=== PATIENT | male | born 1960 | race Caucasian/White ===

== ENCOUNTER 2019-01-08 11:27 | Inpatient (IN) | payer MEDICARE ==
[2019-01-08] VITALS (11 sets, daily range): BP systolic 80–149; BP diastolic 49–105
[~2019-01-08] VITALS: Ht 167 cm; Wt 69.7 kg
--- NOTE | 2019-01-08 12:12 | ED Respiratory ---
General Chief Complaint: Respiratory Problems Stated Complaint: AUDITORY/VISUAL HALLUCINATIONS; SOB Nursing Triage Note: PT HAS COPD/EMPHYSEMA AND REPORTS INCREASED SHORTNESS OF BREATH THE PAST TWO WEEKS WIUTH WORSENING THE PAST 2 DAYS. FAMILY REPORTS SOME HALLUCINATIONS PAST 2 DAYS. History of Present Illness Date Seen by Provider: Jan 08, 2019 Time Seen by Provider: 11:50 Initial Comments The patient is a 58-year-old male with a history of hypertension, hyperlipidemia, coronary artery disease s/p stenting/GA and severe COPD with chronic respiratory failure on 3 L per nasal cannula at all times. The patient presents with concern for gradually increasing shortness of breath and dyspnea with minimal exertion over the past 2 weeks. Over the past couple of days the patient has been unable to ambulate at all secondary to severe dyspnea. Patient reports associated dry nonproductive cough. Patient is unable to speak in full sentences and has to struggle for breath in between words. Accessory muscle recruitment is noted on initial evaluation and the patient is tripoding to some degree. Family state that in addition to the shortness of breath that over the last couple of days the patient has been having some hallucinations. Reportedly he has been a little "out of it" and has been hearing the television tuned to a football game when the television is off. No associated fevers, nausea or vomiting, chest pain, flank pain, back pain, dysuria or hematuria, changes in bowel habits. Patient reports compliance with his home breathing and other medications. Vital signs generally appropriate aside from oxygen saturation of a bout 90% on 3 L per nasal cannula. Patient is alert and oriented and appropriately interactive, though as noted is unable to speak in full sentences due to severe dyspnea. Allergies and Home Medications Allergies Coded Allergies: No Known Drug Allergies (Unverified , 01/08/19) Patient Home Medication List Home Medication List Reviewed: Yes Review of Systems Review of Systems Constitutional: see HPI All Other Systems Reviewed Negative Unless Noted: Yes (Negative excepted noted.) Past Fcjevbp-Opihsc-Zvpcxa Hx Past Med/Social Hx: Reviewed Nursing Past Med/Soc Hx Patient Social History Alcohol Use: Denies Use Recreational Drug Use: No Smoking Status: Current Everyday Smoker Type Used: Cigarettes Former Smoker, Quit: Dec 29, 2018 2nd Hand Smoke Exposure: Yes Recent Foreign Travel: No Contact w/Someone Who Travel: No Recent Infectious Disease Expo: No Recent Hopitalizations: No Physical Abuse: No Sexual Abuse: No Mistreated: No Fear: No Seasonal Allergies Seasonal Allergies: No Family Medical History Reviewed Nursing Family Hx Physical Exam Vital Signs - First Documented 01/08/19 11:30 Temp 37.3 Pulse 118 Resp 18 B/P (MAP) 111/99 (103) O2 Delivery Room Air Capillary Refill : Less Than 3 Seconds Height: '" Weight: lbs. oz. kg; 20.00 BMI Method: General Appearance: mild distress This is an older male appearing rather ill and in mild distress. Patient is leaning forward to breathe and tripoding to degree and speaking in short sentences with pauses for breath and accessory muscle improvement is appreciated. Patient is tachypneic. Head is normocephalic and atraumatic. Neck is supple and nontender. Oropharynx is moist. Lungs with significantly diminished breath sounds in all trejo and with other findings as noted above. There is a normal S1 and S2 without rubs or gallops and capillary refill is appropriate, less than 2 seconds globally. Abdomen is soft, nontender and nondistended. Skin is warm and dry without dependent peripheral edema noted. There is no cyanosis but there is clubbing of the fingernails. Psychiatrically, the patient demonstrates appropriate mood and affect and is alert. Neurologically, the patient is oriented in all spheres, moves all extremities equally and no lateralizing deficits are seen. Focused Exam Lactate Level 01/08/19 12:30: Lactic Acid Level 0.84 Lactic Acid Level Laboratory Tests Test 01/08/19 12:30 Lactic Acid Level 0.84 MMOL/L (0.50-2.00) Progress/Results/Core Measures Suspected Sepsis Recent Fever Within 48 Hours: No Infection Criteria Present: None New/Unexplained Altered Menta: No Sepsis Screen: No Definite Risk SIRS Temperature: Pulse: 118 Respiratory Rate: 18 Laboratory Tests 01/08/19 12:30: White Blood Count 9.7 Blood Pressure 111 /99 Mean: 103 01/08/19 12:30: Lactic Acid Level 0.84 Laboratory Tests 01/08/19 12:30: Creatinine 0.63, INR Comment 1.0, Platelet Count 232, Total Bilirubin 0.3 Results/Orders Lab Results Laboratory Tests Test 01/08/19 12:30 01/08/19 12:45 Range/Units White Blood Count 9.7 4.3-11.0 10^3/uL Red Blood Count 3.80 L 4.35-5.85 10^6/uL Hemoglobin 12.0 L 13.3-17.7 G/DL Hematocrit 41 40-54 % Mean Corpuscular Volume 107 H 80-99 FL Mean Corpuscular Hemoglobin 32 25-34 PG Mean Corpuscular Hemoglobin Concent 30 L 32-36 G/DL Red Cell Distribution Width 12.2 10.0-14.5 % Platelet Count 232 130-400 10^3/uL Mean Platelet Volume 11.1 H 7.4-10.4 FL Neutrophils (%) (Auto) 81 H 42-75 % Lymphocytes (%) (Auto) 6 L 12-44 % Monocytes (%) (Auto) 12 0-12 % Eosinophils (%) (Auto) 0 0-10 % Basophils (%) (Auto) 0 0-10 % Neutrophils # (Auto) 7.9 H 1.8-7.8 X 10^3 Lymphocytes # (Auto) 0.6 L 1.0-4.0 X 10^3 Monocytes # (Auto) 1.2 H 0.0-1.0 X 10^3 Eosinophils # (Auto) 0.0 0.0-0.3 10^3/uL Basophils # (Auto) 0.0 0.0-0.1 10^3/uL Neutrophils % (Manual) 52 % Lymphocytes % (Manual) 6 % Monocytes % (Manual) 12 % Eosinophils % (Manual) 0 % Basophils % (Manual) 0 % Band Neutrophils 30 % Blood Morphology Comment NORMAL Prothrombin Time 13.3 12.2-14.7 SEC INR Comment 1.0 0.8-1.4 Activated Partial Thromboplast Time 28 24-35 SEC Sodium Level 142 135-145 MMOL/L Potassium Level 4.6 3.6-5.0 MMOL/L Chloride Level 85 L 98-107 MMOL/L Carbon Dioxide Level 49 *H 21-32 MMOL/L Anion Gap 8 5-14 MMOL/L Blood Urea Nitrogen 13 7-18 MG/DL Creatinine 0.63 0.60-1.30 MG/DL Estimat Glomerular Filtration Rate > 60 BUN/Creatinine Ratio 21 Glucose Level 164 H 70-105 MG/DL Lactic Acid Level 0.84 0.50-2.00 MMOL/L Calcium Level 9.6 8.5-10.1 MG/DL Corrected Calcium 9.6 8.5-10.1 MG/DL Total Bilirubin 0.3 0.1-1.0 MG/DL Aspartate Amino Transf (AST/SGOT) 15 5-34 U/L Alanine Aminotransferase (ALT/SGPT) 9 0-55 U/L Alkaline Phosphatase 98 40-136 U/L Troponin I < 0.30 <0.30 NG/ML Pro-B-Type Natriuretic Peptide 384.3 H <75.0 PG/ML Total Protein 8.1 6.4-8.2 GM/DL Albumin 4.0 3.2-4.5 GM/DL Salicylates Level < 5.0 L 5.0-20.0 MG/DL Acetaminophen Level < 10 L 10-30 UG/ML Serum Alcohol < 10 <10 MG/DL Blood Gas Puncture Site LT RAD Blood Gas Patient Temperature 35.6 Arterial Blood pH 7.27 *L 7.37-7.43 Arterial Blood Partial Pressure CO2 > 115 *H 35-45 MMHG Arterial Blood Partial Pressure O2 51 L 79-93 MMHG Arterial Blood HCO3 23-27 MMOL/L Arterial Blood Total CO2 21.0-31.0 MMOL/L Arterial Blood Oxygen Saturation 94-100 % Arterial Blood Base Excess -2.5-2.5 MMOL/L Morteza Test POS Blood Gas Ventilator Setting NO Blood Gas Inspired Oxygen 3L My Orders Orders - WILFREDO OSBORN MD Cbc With Automated Diff (01/08/19 12:13) Comprehensive Metabolic Panel (01/08/19 12:13) Troponin I (01/08/19 12:13) Ekg Tracing (01/08/19 12:13) Ua Culture If Indicated (01/08/19 12:13) Probnp Fs (01/08/19 12:13) Protime With Inr (01/08/19 12:13) Partial Thromboplastin Time (01/08/19 12:13) Ct Head Wo (01/08/19 12:13) Arterial Blood Gas (01/08/19 12:13) Lactic Acid Analyzer (01/08/19 12:13) Blood Culture (01/08/19 12:13) Acetaminophen (01/08/19 12:13) Salicylate (01/08/19 12:13) Alcohol (01/08/19 12:13) Drug Screen Stat (Urine) (01/08/19 12:13) Ceftriaxone For Iv Use (Rocephin For I (01/08/19 12:45) Albuterol/Ipra Inhalation Soln (Duoneb I (01/08/19 12:45) Svn Small Volume Nebulizer (01/08/19 12:31) Albuterol Pre-Mix Nebs (Rt) (Proventil (01/08/19 12:45) Svn Small Volume Nebulizer (01/08/19 12:31) Methylprednisolone Sod Succ (Solu-Medrol (01/08/19 12:45) Manual Differential (01/08/19 12:30) Chest 1 View Ap/Pa Only (01/08/19 12:13) Chest 1 View Ap/Pa Only (01/08/19 14:54) Propofol Drip (Icu) (Diprivan Drip (Icu) (01/08/19 14:57) Ed Iv/Invasive Line Start (01/08/19 15:07) Ns Iv 1000 Ml (Sodium Chloride 0.9%) (01/08/19 15:07) Propofol Injection (Diprivan Injection) (01/08/19 15:15) Fentanyl Drip 250 Ml (01/08/19 15:15) Medications Given in ED Current Medications Medications Dose Ordered Sig/Janina Route Start Time Stop Time Status Last Admin Dose Admin Albuterol Sulfate 2.5 mg ONCE ONCE INH 01/08/19 12:45 01/08/19 12:46 DC 01/08/19 13:05 2.5 MG Albuterol/ Ipratropium 3 ml ONCE ONCE INH 01/08/19 12:45 01/08/19 12:46 DC 01/08/19 13:05 3 ML Ceftriaxone Sodium 1000 mg/ Sterile Water 10 ml @ 200 mls/hr ONCE ONCE IV 01/08/19 12:45 01/08/19 12:47 DC 01/08/19 13:32 200 MLS/HR Methylprednisolone Sodium Succinate 125 mg ONCE ONCE IVP 01/08/19 12:45 01/08/19 12:46 DC 01/08/19 13:31 125 MG Vital Signs/I&O 01/08/19 11:30 Temp 37.3 Pulse 118 Resp 18 B/P (MAP) 111/99 (103) O2 Delivery Room Air Capillary Refill : Less Than 3 Seconds Blood Pressure Mean: 103 Progress Note : Time: 13:30 Progress Note Ill-appearing 58-year-old male who presents in apparent acute on chronic respiratory failure with poor air movement, accessory muscle use, tripoding and inability to speak in full sentences. Symptoms have been progressive over 2 weeks. Suspect his reported alteration in mental status over the last few days is related to hypercarbia but we'll explore other possibilities as well with advanced imaging and labwork. We'll place the patient on BiPAP, give bronchodilators, steroids and abx dose and plan ICU admission. Update 1500: patient unfortunately appeared to tire significantly while on BiPAP and became obtunded. Therefore, patient was endotracheally intubated due to need for airway protection and acute hypercarbic hypoxemic respiratory failure. RSI was performed with etomidate and succinylcholine and tube was passed through the cords on the first attempt by myself without any complications. Patient tolerated the procedure very well and postprocedure vital signs are appropriate. Case is discussed with Dr. Simeon of critical care/pulmonary medicine who will evaluate the patient as soon as he gets to [place]. Case is also discussed with Dr. Kent who graciously accept the patient for ICU admission. We will proceed with transfer at this time. ECG Comment Sinus tachycardia, rate 109, no acute ST elevation or depression, ME 102, QRS 93, QTC 438, EP interpretation. Diagnostic Imaging Diagonstic Imaging: Xray, CT Comments XR chest and CT head: advanced bullous emphysema on CXR; head CT nonacute, radiology read Critical Care Note Critical Care Start Time: 13:30 Stop Time: 15:30 Total Time (minutes) 120 Departure Impression Primary Impression: Acute and chronic respiratory failure with hypercapnia Additional Impressions: Acute and chronic respiratory failure with hypoxia COPD exacerbation Disposition: ADMITTED INPATIENT Condition: Critical Transfer Method of Transfer: EMS Departure-Patient Inst. Referrals: CRISTI TO MD (PCP/Family) Primary Care Physician WILFREDO OSBORN MD Jan 08, 2019 12:12
[2019-01-08] MEDS ORDERED: RT-ALBUTEROL/IPRATROPIUM 3 ML (DUONEB) VIAL INH ONE (12:45)
[2019-01-08] MEDS ORDERED: cefTRIAXone FOR IV USE 1,000 MG in WATER (STERILE) FOR INJECTION 10 ML IV ONE (12:45)
[2019-01-08] MEDS ORDERED: RT-ALBUTEROL SULF 2.5 MG/3 ML PRE-MIX VIAL INH ONE (12:45)
[2019-01-08] MEDS ORDERED: methylPREDNISolone 125 MG (Solu-MEDROL) VIAL IVP ONE (12:45)
[2019-01-08 12:48] LABS: HEMATOCRIT 41 % (40-54); MEAN CORPUSCULAR HEMOGLOBIN 32 PG (25-34); MEAN CORPUSCULAR HGB CONC 30 G/DL (32-36); MEAN CORPUSCULAR VOLUME 107 FL (80-99); MEAN PLATELET VOLUME 11.1 FL (7.4-10.4); PLATELET COUNT 232 10^3/uL (130-400); RED CELL DISTRIBUTION WIDTH 12.2 % (10.0-14.5); WHITE BLOOD COUNT 9.7 10^3/uL (4.3-11.0)
[2019-01-08 12:49] LABS: BASOPHILS % (AUTO) 0 % (0-10); EOSINOPHILS % (AUTO) 0 % (0-10); LYMPHOCYTES # (AUTO) 0.6 X 10^3 (1.0-4.0); LYMPHOCYTES % (AUTO) 6 % (12-44); MONOCYTES # (AUTO) 1.2 X 10^3 (0.0-1.0); MONOCYTES % (AUTO) 12 % (0-12); NEUTROPHILS # (AUTO) 7.9 X 10^3 (1.8-7.8); NEUTROPHILS % (AUTO) 81 % (42-75)
[2019-01-08 12:55] LABS: ABG PH 7.27 (7.37-7.43)
[2019-01-08 12:56] LABS: ABG PCO2 > 115 MMHG (35-45); ABG PO2 51 MMHG (79-93); ALLENS TEST POS; INSPIRED O2 3L; PATIENT TEMP 35.6; VENTILATOR NO
[2019-01-08 12:57] LABS: PROTHROMBIN TIME PATIENT 13.3 SEC (12.2-14.7)
[2019-01-08 13:12] LABS: CHLORIDE 85 MMOL/L (98-107); POTASSIUM 4.6 MMOL/L (3.6-5.0); SODIUM 142 MMOL/L (135-145)
[2019-01-08 13:13] LABS: ALANINE AMINOTRANSFERASE 9 U/L (0-55); ALKALINE PHOSPHATASE 98 U/L (40-136); BILIRUBIN,TOTAL 0.3 MG/DL (0.1-1.0); BUN/CREATININE RATIO 21; CALCIUM 9.6 MG/DL (8.5-10.1); CARBON DIOXIDE 49 MMOL/L (21-32); CREATININE SERUM 0.63 MG/DL (0.60-1.30); GFR ESTIMATED > 60; GLUCOSE 164 MG/DL (70-105)
[2019-01-08 13:14] LABS: ACETAMINOPHEN < 10 UG/ML (10-30); SALICYLATE < 5.0 MG/DL (5.0-20.0); TOTAL PROTEIN 8.1 GM/DL (6.4-8.2)
--- NOTE | 2019-01-08 13:36 | Diagnostic Imaging Report ---
INDICATION: Shortness of breath. Frontal chest obtained at 1:07 p.m. FINDINGS: There is cardiomegaly. There is marked biapical bullous disease with a large bleb in the right apex medially. There is no pleural fluid or overt pneumothorax. There is some perihilar infiltrate on the right side, which may represent superimposed pneumonia. IMPRESSION: Severe COPD changes with prominent biapical bullous disease, right worse than left. There is some right perihilar alveolar infiltrate suspicious for superimposed pneumonia. Followup is recommended. Dictated by: Dictated on workstation # [id number]
--- NOTE | 2019-01-08 13:50 | Diagnostic Imaging Report ---
PROCEDURE: CT head without contrast. TECHNIQUE: Multiple contiguous axial images were obtained through the brain without the use of intravenous contrast. Auto Exposure Controls were utilized during the CT exam to meet ALARA standards for radiation dose reduction. INDICATION: Hallucinations. FINDINGS: Study is somewhat compromised by patient motion. Ventricles and sulci are within normal limits. No sulcal effacement or midline shift is detected. No acute intra-axial or extra-axial hemorrhage is detected. Cisterns are patent. Visualized paranasal sinuses are clear. IMPRESSION: No acute intracranial process is detected. Dictated by: Dictated on workstation # [id number]
[2019-01-08 14:32] LABS: BAND NEUTROPHILS 30 %; BASOPHILS % (MANUAL) 0 %; EOSINOPHILS % (MANUAL) 0 %; LYMPHOCYTES % (MANUAL) 6 %; MONOCYTES % (MANUAL) 12 %; NEUTROPHILS % (MANUAL) 52 %; RBC MORPH NORMAL
--- NOTE | 2019-01-08 14:45 | NUR ---
PT WAS MOVED TO ER 3 TO PREPARE FOR INTUBATION. 1452 100 MG OF SUCCINYCHOLINE GIVEN IV IN THE RIGHT WRIST. 1452 130 MG OF ETOMIDATE GIVEN IV IN THE RIGHT WRIST.
[2019-01-08] MEDS ORDERED: PROPOFOL DRIP (ICU) 100 ML IV ONE (14:57)
[2019-01-08] MEDS ORDERED: NS IV 1000 ML 1,000 ML IV SCH (15:07)
[2019-01-08] MEDS ORDERED: fentaNYL INJECTION 100 MCG/2 ML AMP ONE (15:10)
--- NOTE | 2019-01-08 15:14 | NUR ---
1507 [facility] called at this time to see if they can transfer patient. They only have 3 trucks and 1 truck is currently on a transfer. 1508 [facility] contacted at this time and spoke to Justino. He will call [facility] and will call back. 1513 Justino called back accepting patient. Patient info given and will call back with room number.
[2019-01-08] MEDS ORDERED: fentaNYL INJECTION 1,250 MCG in NS (IVPB) 250 ML IV SCH (15:15)
[2019-01-08] MEDS ORDERED: PROPOFOL INJECTION 50 ML IV SCH (15:15)
--- NOTE | 2019-01-08 15:25 | NUR ---
Called Justino back with room number. Will head this way in little bit, he stated.
--- NOTE | 2019-01-08 15:36 | Diagnostic Imaging Report ---
Indication: NG tube placement There is an ET tube projecting over the trachea. There is an NG tube that appears to be in the airway passing into the left lower lobe segmental bronchus. There are large apical bullae in the medial lung apices bilaterally. There is a linear area of lucency along left lower lateral chest that could be a small pneumothorax. Impression: NG tube appears to be in a left lower lobe bronchus. Questionable tiny left pneumothorax. CRITICAL FINDING: Report was called to [facility] by bailey at 3:34 p.m. Dictated by: Dictated on workstation # [id number]
--- NOTE | 2019-01-08 15:38 | NUR ---
Report given by radiology NG tube in LLL tiny pneumothorax. Report given to physician. Removal of NG tube at this time.
--- NOTE | 2019-01-08 15:45 | NUR ---
1500-FIO2 AT 100% WITH RATE OF 18. 1515-FIO2 AT 80% WITH RATE OF 18. 1530-FIO2 AT 60% WITH RATE OF 18. 1542-FIO2 AT 40% WITH RATE OF 18 1545-RATE CHAGED FROM 18 TO 12 RESP PER MINUTE. 1547-TIDAL VOLUME AT 400. 1550-TIDAL VOLUME AT 350. 1550-FI02 AT 30% WITH RATE OF 12.
--- NOTE | 2019-01-08 15:57 | NUR ---
1555-TIDAL VOLUME 450 AND A RATE OF 22.
[2019-01-08] MEDS ORDERED: MAGNESIUM 1 GM/100 ML IVPB 100 ML IV ONE (15:59)
[2019-01-08] MEDS ORDERED: ETOMIDATE IV SOLN 20 MG/10 ML VIAL IV ONE (15:59)
[2019-01-08] MEDS ORDERED: KETAMINE HCL 100 MG/ML 5 ML VIAL INJ ONE (15:59)
[2019-01-08] MEDS ORDERED: SUCCINYLCHOLINE INJ 100 MG/5 ML SYR INJ ONE (15:59)
[2019-01-08] MEDS ORDERED: NS IV 1000 ML 1,000 ML IV ONE (15:59)
[2019-01-08] MEDS ORDERED: NOREPINEPHRINE 4 MG/4 ML (LEVOPHED) AMP IV ONE (16:05)
[2019-01-08] MEDS ORDERED: NS (IVPB) 250 ML ONE (16:11)
--- NOTE | 2019-01-08 16:38 | NUR ---
1636 60 MG OF KETAMINE GIVEN IV. 1640 LEVAFED DRIP SARTED AT 0.17 MCG PER MINUTE. [facility] ARRIVED AND REPORT GIVEN TO JUAQUIN CASTRO.
[2019-01-08] MEDS ORDERED: NOREPINEPHRINE 4 MG in NS (IVPB) 250 ML IV SCH (16:45)
--- NOTE | 2019-01-08 17:30 | Diagnostic Imaging Report ---
INDICATION: Chest pain. COMPARISON: 01/08/2019. FINDINGS: Single view of the chest demonstrates unchanged parenchymal scarring and COPD. There is no new infiltrate, pneumothorax, or effusion. Osseous structures are stable. The heart is normal without pulmonary edema. IMPRESSION: 1. Severe parenchymal scarring and COPD. No interval change from prior exam. 2. Not mentioned above, stable ET tube. Dictated by: Dictated on workstation # [id number]
[2019-01-08] MEDS ORDERED: DEXMEDETOMIDINE INJECTION 1,000 MCG in NS (IVPB) 240 ML IV SCH (18:30)
[2019-01-08] MEDS ORDERED: PROPOFOL DRIP (ICU) 100 ML IV SCH (18:30)
[2019-01-08] MEDS ORDERED: D5 1/2 NS 1000 ML IV SOLUTION 1,000 ML IV ONE (18:59)
--- NOTE | 2019-01-08 19:06 | Diagnostic Imaging Report ---
INDICATION: ET tube placement. COMPARISON: 01/08/2019 at 04:58 p.m. FINDINGS: Single view of the chest demonstrates ET tube in the mid trachea. The NG tube is in the stomach. Aeration in the lungs is unchanged. There is no pneumothorax. Bullous lung disease and parenchymal scarring are present. IMPRESSION: Well-positioned support lines. No pneumothorax. Dictated by: Dictated on workstation # [id number]
[2019-01-08] MEDS: D5 1/2 NS 1000 ML IV SOLUTION 1,000 ML IV SCH ×2 (19:29→20:22)
[2019-01-08] MEDS ORDERED: RT-ALBUTEROL/IPRATROPIUM 3 ML (DUONEB) VIAL ONE (19:59)
[2019-01-08 20:07] LABS: ABG BASE EXCESS 12.3 MMOL/L (-2.5-2.5); ABG OXYGEN SATURATION 100 % (94-100); ABG PO2 231 MMHG (79-93); ABG TCO2 41.4 MMOL/L (21.0-31.0)
[2019-01-08 20:08] LABS: INSPIRED O2 60%; PATIENT TEMP 37.8; VENTILATOR YES
[2019-01-08 20:11] LABS: ABG PCO2 84 MMHG (35-45); ABG PH 7.29 (7.37-7.43)
[2019-01-08] MEDS: RT-ALBUTEROL/IPRATROPIUM 3 ML (DUONEB) VIAL IH SCH (20:20)
[2019-01-08] MEDS ORDERED: RT-ALBUTEROL/IPRATROPIUM 3 ML (DUONEB) VIAL IH PRN (20:30)
[2019-01-08] MEDS ORDERED: methylPREDNISolone 40 MG/ML (Solu-MEDROL) VIAL IV SCH (21:00)
[2019-01-08 21:03] LABS: AMPHETAMINE SCREEN, URINE NEGATIVE (NEGATIVE); BARBITURATE SCREEN URINE NEGATIVE (NEGATIVE); BENZODIAZEPINES SCREEN URINE NEGATIVE (NEGATIVE); CANNABINOID SCREEN, URINE NEGATIVE (NEGATIVE); COCAINE SCREEN URINE NEGATIVE (NEGATIVE); METHADONE STAT NEGATIVE (NEGATIVE); METHAMPHETAMINE SCREEN URINE S NEGATIVE (NEGATIVE); OPIATE SCREEN URINE NEGATIVE (NEGATIVE); OXYCODONE STAT NEGATIVE (NEGATIVE); TRICYCLIC ANTIDEPRESSANTS SCRE NEGATIVE (NEGATIVE)
[2019-01-08 21:04] LABS: CLARITY,URINE SL CLOUDY; COLOR,URINE AMBER; PH,URINE 5 (5-9); PROPOXYPHENE STAT NEGATIVE (NEGATIVE); PROTEIN,URINE 3+ (NEGATIVE)
[2019-01-08 21:05] LABS: BILIRUBIN,URINE NEGATIVE (NEGATIVE); GLUCOSE, URINE (UA) 2+ (NEGATIVE); KETONES,URINE 1+ (NEGATIVE); LEUKOCYTE ESTERASE ,URINE 1+ (NEGATIVE); NITRITE,URINE NEGATIVE (NEGATIVE); RBC,URINE 25-50 /HPF; UROBILINOGEN,URINE 1 MG/DL (NORMAL)
[2019-01-08 21:07] LABS: AMORPHOUS SEDIMENT,UR MOD AMOR URATES /LPF; BACTERIA,URINE MODERATE /HPF
[2019-01-08] MEDS: AZITHROMYCIN 500 MG/NS 250 ML IVPB IV SCH ×2 (21:13)
--- NOTE | 2019-01-08 23:30 | NUR ---
CENTRAL LINE DRESSING NEEDING CHANGED DUE TO BEING SANGUINOUS. OPSITE REMOVED, SITE CLEANED AND PREPPED WITH CHLORHEXIDINE PREP, ALLOWED TO DRY FOR 3MIN AND NEW OPSITE APPLIED WITH STERILE GLOVES.
[2019-01-09] VITALS (29 sets, daily range): BP systolic 96–188; BP diastolic 68–113
--- NOTE | 2019-01-09 | NUR ---
UPON REPOSITIONING PT TO RIGHT SIDE, PT BEGAN VOMITING THICK, CREAMY, WHITE VOMIT. RT NOTIFIED, ET AND ORAL SUCTION PROVIDED, HOB RAISED TO 30 DEGREES, O2 SATURATION 100%, HR 100, RR 20, BP 102/74. WILL CONTINUE TO MONITOR.
[2019-01-09] MEDS: inSUlin ASPART (NovoLOG) 1 UNIT/0.01 ML (CHARGE PER UNIT) SC SCH ×4 (00:14→18:20)
--- NOTE | 2019-01-09 02:05 | OPERATIVE REPORT ---
DATE OF SERVICE: 01/08/2019 PREOPERATIVE DIAGNOSES: 1. Venous insufficiency. 2. Hypotension. 3. End-stage chronic obstructive pulmonary disease. POSTOPERATIVE DIAGNOSES: 1. Venous insufficiency. 2. Hypotension. 3. End-stage chronic obstructive pulmonary disease. PROCEDURE: Insertion of triple lumen catheter central line with ultrasound guidance. SURGEON: Damion Muniz DO GLOBAL LOGISTICS ANALYST: MITZI Helton SPECIMENS: None. BLOOD LOSS: Less than 5 mL. FLUIDS: None. POSTOPERATIVE CONDITION: Stable. INDICATION FOR PROCEDURE: The patient is a 58-year-old male who was transferred down from [place]. He had been intubated secondary to end-stage COPD. He was hypotensive. Blood pressure was in the 70s, was on Levophed, but needed central line for Levophed. FINDINGS: The patient had a central line placed right IJ with ultrasound guidance. PROCEDURE NOTE: After informed consent was obtained from the , the patient in his bed was sterilely prepped and draped in normal fashion. Local lidocaine was used to infiltrate the right neck. Ultrasound guidance was then used and advanced the 18-gauge fine needle under negative inspiration, watched it cannulate the internal jugular vein. Good flash of blood was seen. Removed the syringe, placed a guidewire down the needle using Seldinger technique, it went in easily and checked with ultrasound and could see the wire in the internal jugular vein. At this point, then removed the needle and then made a stab incision along the guidewire with #11 blade and then over the guidewire placed a dilator using Seldinger technique. It went in easily, then removed this and then over the dilator placed the triple lumen catheter, it went in easily, removed the guidewire and then easily aspirated and flushed in all 3 ports, sterile normal saline. Once this was done, then sutured the central line in place with 3-0 silk suture on either side to hold in place. Placed the Biopatch under the central line sterilely and then placed a sterile dressing. The area had been cleaned and dried prior to placing the sterile dressing. Sponge, instrument and needle count correct at the end of the case. Job ID: [id number] DocumentID: [id number] Dictated Date: 01/08/2019 19:51:41 Potato Pancake Frier Date: 01/09/2019 02:03:58 Dictated By: DAMION MUNIZ DO [facility]
--- NOTE | 2019-01-09 02:06 | NUR ---
CALLED E-ICU ABOUT PT'S URINE OUTPUT. 50ML URINE OUTPUT AT 2200, 50ML URINE OUTPUT AT 0200. E-ICU STATED THEY DID NOT THINK IT WOULD BE A CONCERN SINCE PRESSURES 110S/80S AND PT WITHIN NORMAL HEART RATE BUT WOULD PASS THE INFORMATION ALONG TO E-ICU DOCTOR.
[2019-01-09] MEDS: RT-ALBUTEROL/IPRATROPIUM 3 ML (DUONEB) VIAL IH SCH ×7 (02:20→21:56)
--- NOTE | 2019-01-09 02:28 | NUR ---
RECEIVED PHONE CALL FROM GERALD E-ICU FOR FOLLOW UP ON THIS RN'S CONCERN OF PT'S LOW URINE OUTPUT. GERALD STATED THAT "SINCE HE'S GOT SO MUCH GOING ON WITH HIS LUNGS, DOCTOR DOES NOT WANT TO GIVE HIM ANY EXTRA FLUIDS BUT HE IS GOING TO ORDER A REPEAT CXR." THIS RN CONFIRMED REPEAT CXR IS TO CHECK STATUS OF THE "TINY" PNEUMOTHORAX IN LLL.
--- NOTE | 2019-01-09 03:05 | NUR ---
PT BP 77/63, INCREASED LEVOPHED TO 0.1MCG/KG/HR. WILL CONTINUE TO MONITOR.
[2019-01-09 03:07] LABS: ABG BASE EXCESS 15.1 MMOL/L (-2.5-2.5); ABG OXYGEN SATURATION 99 % (94-100); ABG PCO2 56 MMHG (35-45); ABG PH 7.46 (7.37-7.43); ABG PO2 157 MMHG (79-93); ABG TCO2 41.7 MMOL/L (21.0-31.0)
[2019-01-09 03:09] LABS: ALLENS TEST YES-POS; INSPIRED O2 30%; VENTILATOR YES
[2019-01-09 03:20] LABS: BASOPHILS % (AUTO) 0 % (0-10); EOSINOPHILS % (AUTO) 0 % (0-10); HEMATOCRIT 32 % (40-54); HEMOGLOBIN 9.5 G/DL (13.3-17.7); LYMPHOCYTES # (AUTO) 0.7 X 10^3 (1.0-4.0); LYMPHOCYTES % (AUTO) 8 % (12-44); MEAN CORPUSCULAR HEMOGLOBIN 32 PG (25-34); MEAN CORPUSCULAR HGB CONC 30 G/DL (32-36); MEAN CORPUSCULAR VOLUME 107 FL (80-99); MEAN PLATELET VOLUME 11.3 FL (7.4-10.4); MONOCYTES # (AUTO) 0.9 X 10^3 (0.0-1.0); MONOCYTES % (AUTO) 10 % (0-12); NEUTROPHILS # (AUTO) 7.6 X 10^3 (1.8-7.8); NEUTROPHILS % (AUTO) 82 % (42-75); PLATELET COUNT 213 10^3/uL (130-400); RED CELL DISTRIBUTION WIDTH 12.3 % (10.0-14.5); WHITE BLOOD COUNT 9.2 10^3/uL (4.3-11.0)
[2019-01-09 03:46] LABS: ALANINE AMINOTRANSFERASE 7 U/L (0-55); ALBUMIN 3.2 GM/DL (3.2-4.5); ALKALINE PHOSPHATASE 79 U/L (40-136); BILIRUBIN,TOTAL 0.3 MG/DL (0.1-1.0); BUN/CREATININE RATIO 16; CALCIUM 8.9 MG/DL (8.5-10.1); CARBON DIOXIDE 38 MMOL/L (21-32); CHLORIDE 89 MMOL/L (98-107); CREATININE SERUM 1.29 MG/DL (0.60-1.30); GFR ESTIMATED 58; GLUCOSE 221 MG/DL (70-105); MAGNESIUM 1.6 MG/DL (1.6-2.4); POTASSIUM 4.4 MMOL/L (3.6-5.0); SODIUM 136 MMOL/L (135-145); TOTAL PROTEIN 6.3 GM/DL (6.4-8.2)
[2019-01-09 03:53] LABS: PHOSPHORUS < 0.7 MG/DL (2.3-4.7)
[2019-01-09] MEDS: POTASSIUM CL 10MEQ/50ML IVPB 50 ML IV SCH (04:20)
[2019-01-09] MEDS: KCL 20 MEQ TAB (K-DUR) PO SCH (04:20)
[2019-01-09] MEDS: MAGNESIUM 1 GM/100 ML IVPB 100 ML IV SCH ×2 (04:20→05:53)
[2019-01-09] MEDS ORDERED: SODIUM PHOSPHATE INJ 30 MM in NS (IVPB) 250 ML IV ONE ×6 (04:30→11:00)
[2019-01-09] MEDS ORDERED: NOREPINEPHRINE 4 MG/4 ML (LEVOPHED) AMP IV ONE (04:35)
[2019-01-09] MEDS ORDERED: NS (IVPB) 250 ML ONE (04:35)
--- NOTE | 2019-01-09 04:41 | Pulmonary Consultation ---
History of Present Illness History of Present Illness Date of Consultation 01/09/19 04:34 Date of Admission Allergies and Home Medications Allergies Coded Allergies: No Known Drug Allergies (Unverified , 01/08/19) Past Hdvamkl-Ryaskv-Kwjwbx Hx Past Med/Social Hx: Reviewed Nursing Past Med/Soc Hx Patient Social History Alcohol Use: Denies Use Recreational Drug Use: No Smoking Status: Current Everyday Smoker Type Used: Cigarettes Former Smoker, Quit: Dec 29, 2018 2nd Hand Smoke Exposure: Yes Recent Foreign Travel: No Contact w/Someone Who Travel: No Recent Infectious Disease Expo: No Recent Hopitalizations: No Physical Abuse: No Sexual Abuse: No Mistreated: No Fear: No Seasonal Allergies Seasonal Allergies: No Family Medical History Reviewed Nursing Family Hx Sepsis Event Evaluation Height, Weight, BMI Height: '" Weight: lbs. oz. kg; 20.00 BMI Method: Exam Exam Vital Signs Date Time Temp Pulse Resp B/P (MAP) Pulse Ox O2 Delivery O2 Flow Rate FiO2 01/09/19 03:53 Mechanical Ventilator 70 01/09/19 03:00 37.0 01/09/19 02:20 98 20 99 30 01/09/19 02:00 37.4 01/09/19 01:00 99 01/09/19 00:00 Mechanical Ventilator 70 01/09/19 00:00 100 20 102/74 (83) 99 Mechanical Ventilator 30.00 01/08/19 23:00 37.6 01/08/19 23:00 101 19 96/71 (79) 98 Mechanical Ventilator 30.00 01/08/19 22:26 97 19 95/66 (76) 99 Mechanical Ventilator 30.00 01/08/19 22:22 101 20 100 40 01/08/19 22:00 101 19 107/83 (91) 100 Mechanical Ventilator 40.00 01/08/19 21:13 103 20 96/67 100 Mechanical Ventilator 01/08/19 21:00 102 20 96/67 (77) 100 Mechanical Ventilator 40.00 01/08/19 20:30 98 19 123/83 (96) 100 Mechanical Ventilator 40.00 01/08/19 20:05 98 20 100 60 01/08/19 20:04 97 131/99 (110) 100 Mechanical Ventilator 60.00 01/08/19 20:00 Mechanical Ventilator 70 01/08/19 20:00 37.8 01/08/19 19:06 102 01/08/19 19:06 102 80/49 (59) 100 Mechanical Ventilator 60.00 01/08/19 18:53 Mechanical Ventilator 70.00 01/08/19 18:31 100 Mechanical Ventilator 80 01/08/19 18:09 96 01/08/19 18:00 88 35 149/105 (120) 100 Mechanical Ventilator 80.00 01/08/19 17:50 90 20 100 100 01/08/19 15:28 Mechanical Ventilator 01/08/19 11:30 37.3 118 18 111/99 (103) Room Air I & O 01/09/19 07:00 Intake Total 100 ml Output Total 100 ml Balance 0 ml Height & Weight Height: '" Weight: lbs. oz. kg; 20.00 BMI Method: Capillary Refill: Less Than 3 Seconds Results Lab Laboratory Tests 01/08/19 12:30 01/09/19 03:10 Assessment/Plan Assessment/Plan Acute and chronic respiratory failure with hypercapnia -Continue ventilator care -Will try to wean Vent -Hold Propofol and continue Precedex Severe COPD/emphysema with COPDAE -Solumedrol 40 IV Q 6 -SVNs Q 4 Severe hypophos -replace Anemia -Monitor -Check occult stool GI/DVT PPX -Lovenox -Protonix HANG PAINTER DO Jan 09, 2019 04:41
[2019-01-09] MEDS ORDERED: ENOXAPARIN 40 MG/0.4 ML (LOVENOX) SYR SC SCH ×2 (04:45→09:00)
[2019-01-09] MEDS ORDERED: methylPREDNISolone 125 MG (Solu-MEDROL) VIAL IVP ONE (04:45)
[2019-01-09] MEDS ORDERED: LACTATED RINGERS 1,000 ML IV SCH (04:45)
[2019-01-09] MEDS: LACTATED RINGERS 1,000 ML IV SCH ×3 (06:09→17:44)
[2019-01-09] MEDS: PANTOPRAZOLE 40 MG (PROTONIX) VIAL IV SCH (07:42)
--- NOTE | 2019-01-09 08:58 | Diagnostic Imaging Report ---
INDICATION: Dyspnea. COMPARISON: 01/08/2019. FINDINGS: The lines and tubes are in satisfactory position. There is unchanged bullous emphysematous disease in the lung apices, right greater than left. There is air-trapping. There is no pneumothorax. IMPRESSION: COPD with large bullae in the lung apices and scarring in the lung bases. Dictated by: Dictated on workstation # [id number]
[2019-01-09] MEDS ORDERED: NF-XOP-HFA INH (09:41)
[2019-01-09] MEDS ORDERED: LISI-556 PO (09:41)
[2019-01-09] MEDS ORDERED: METO-370 PO (09:41)
[2019-01-09] MEDS ORDERED: ATOR10TA66 PO (09:41)
[2019-01-09] MEDS ORDERED: IPRA3AMP31 NEB (09:41)
[2019-01-09] MEDS ORDERED: ALPR0.5T7 PO (09:41)
[2019-01-09] MEDS ORDERED: TIOT4MIS3 INH (09:41)
--- NOTE | 2019-01-09 09:42 | NUR ---
PATIENT SELF EXTUBATED AT THIS TIME. PATIENT PLACED ON NASAL CANNULA AT THIS TIME 8 LITERS. RESTRAINTS REMOVED. NOTIFIED DR PAINTER OF PATIENT SELF REMOVAL, RECEIVED ORDER FOR RT TO TITRATE O2 TO MAINTAIN SATS BETWEEN 90-92%,
[2019-01-09 10:00] LABS: ABG BASE EXCESS 11.6 MMOL/L (-2.5-2.5); ABG OXYGEN SATURATION 97 % (94-100); ABG PO2 93 MMHG (79-93); ABG TCO2 41.1 MMOL/L (21.0-31.0)
[2019-01-09 10:02] LABS: ABG PCO2 82 MMHG (35-45); ABG PH 7.29 (7.37-7.43); ALLENS TEST YES-POS; INSPIRED O2 2 L
[2019-01-09 10:03] LABS: PATIENT TEMP 36.6; VENTILATOR NO
--- NOTE | 2019-01-09 10:15 | NUR ---
ENTERED PATIENT ROOM AT THIS TIME, NOTED PATIENT HAD PULLED OUT R IJ CENTRAL LINE. PRESSURE HELD AT THIS TIME FOR [address] PAINTER OF PATIENT REMOVING CENTRAL LINE WELL PATIENT CRITICAL ABG RESULTS. RECEIVED MEDICATION ORDERS ET ORDERS FOR RT TO PLACE PATIENT ON VAPOTHERM
--- NOTE | 2019-01-09 10:25 | NUR ---
PATIENT PLACED ON VAPOTHERM AT THIS TIME 40LPN 28%FIO2 PATIENT SATING 92%. RESTING WITH BOTH EYES CLOSED.
[2019-01-09] MEDS ORDERED: HALOPERIDOL 5 MG/ML (HALDOL) AMP IM ONE (10:30)
[2019-01-09] MEDS: methylPREDNISolone 40 MG/ML (Solu-MEDROL) VIAL IV SCH ×3 (11:12→23:19)
--- NOTE | 2019-01-09 12:04 | NUR ---
Tugboat Engineer follow-up on referral. Pt on bipap, at bedside. No worship preference. Pt has been restless. did not indicate a desire for spiritual care at this moment. Tugboat Engineer will continue to follow.
--- NOTE | 2019-01-09 12:10 | Pulmonary Progress Note ---
Standard Progress Note Progress Notes Date Seen by Provider: Jan 09, 2019 Time Seen by Provider: 11:00 Called to bedside after pt self extubated. He is very anxious with accessory muscle use. Pt states he does not ever want to be reintubated. He also does not want to be a Code. Pt was placed on Vapotherm. BiPAP ordered PRN. Assessment & Plan Acute and chronic respiratory failure with hypercapnia -Continue ventilator care -Will try to wean Vent -Hold Propofol and continue Precedex Severe COPD/emphysema with COPDAE -Solumedrol 40 IV Q 6 -SVNs Q 4 Severe hypophos -replace Anemia -Monitor -Check occult stool GI/DVT PPX -Lovenox -Protonix UPDATE: called to bedside once again secondary to Afib RVR with HR around 180. is also now at bedside. Cardizem 10mg IV x 1 and Lopressor 5mg IV x 1 given. I discussed with patient and while at bedside patients current condition. He does not want to go back on ventilator. Pt was placed on BiPAP and then switched to Vapotherm secondary to his request to take of BiPAP. ICU time spent with pt not including this AM's note is 60min Critical Care: Critically Ill Patient Time spent with patient (mins): 60 Focused Exam Lactate Level 01/08/19 12:30: Lactic Acid Level 0.84 HANG PAINTER DO Jan 09, 2019 12:10
[2019-01-09] MEDS: morphine INJ 4 MG/ML 1 ML (VIAL/SYRINGE) IVP PRN ×3 (12:48→23:20)
[2019-01-09] MEDS ORDERED: ASPI-983 PO (13:13)
[2019-01-09] MEDS ORDERED: CYAN500T62 PO (13:14)
--- NOTE | 2019-01-09 13:14 | NUR ---
PATIENTS HAD A MEDICATION LIST WITH HER. WE WENT OVER THAT AND COMPARED IT WITH THE EXT MED HX. HE TAKES ASPIRIN 81MG DAILY AND VITAMIN B12 OTC.
[2019-01-09] MEDS ORDERED: DILTIAZEM 25 MG/5 ML INJ (CARDIZEM) VIAL ONE (13:22)
--- NOTE | 2019-01-09 13:25 | NUR ---
Received Consult for TF assessment d/t vent. Note pt currently extubated and not requiring TF at this time. Will follow-up if needs change. Pete Huddleston MS, RD [phone]
[2019-01-09] MEDS ORDERED: DIAZEPAM INJ 10 MG/2 ML (VALIUM) SYR IVP NR (13:30)
[2019-01-09] MEDS ORDERED: meTOprolol 5 MG/5 ML (LOPRESSOR) VIAL ONE (13:30)
[2019-01-09] MEDS: meTOprolol 5 MG/5 ML (LOPRESSOR) VIAL IV NR (13:43)
[2019-01-09] MEDS ORDERED: DILTIAZEM 25 MG/5 ML INJ (CARDIZEM) VIAL IVP ONE (13:45)
[2019-01-09] MEDS ORDERED: LACTATED RINGERS 500 ML IV ONE (13:45)
[2019-01-09] MEDS: DILTIAZEM IV FOR DRIP 125 MG in NS (IVPB) 100 ML IV SCH ×2 (13:51→23:27)
--- NOTE | 2019-01-09 16:02 | NUR ---
PALLIATIVE CARE RN in to see patient. Spoke to he and his regarding POC for discharge when he is ready. They welcome more discussion and education. Will follow up tomorrow.
[2019-01-09] MEDS ORDERED: ENOXAPARIN 100 MG/1 ML (LOVENOX) SYR SC SCH (16:15)
--- NOTE | 2019-01-09 16:15 | Consultation-Cardiology ---
HPI-Cardiology Cardiology Consultation Date of Consultation 01/09/19 Date of Admission Time Seen by Provider: 16:11 Indication: acute respiratory failure HPI 58 years old gentleman with history of coronary artery disease, hypertension, history of atrial fibrillation in the remote past, admitted with acute respiratory failure, was intubated self extubating. Went to atrial fibrillation with rapid ventricular response on my evaluation patient was short of breath, unable to provide full history, history was obtained by visiting with him and his family. He denied any chest pain, denied any palpitation, severely dyspneic. Home Medications & Allergies Allergies: Coded Allergies: No Known Drug Allergies (Unverified , 01/08/19) Home Medication List Reviewed: Yes ICL-Ziyjpm-Oajvyz Hx Patient Social History Marital Status: Alcohol Use: Denies Use Recreational Drug Use: No Smoking Status: Current Everyday Smoker Type Used: Cigarettes 2nd Hand Smoke Exposure: Yes Recent Foreign Travel: No Recent Infectious Disease Expo: No Recent Hopitalizations: No Past Medical History discussed below Family Medical History Family Medical Hx noncontributory Review of Systems-General Review of Systems Constitutional: see HPI, malaise, weakness EENTM: see HPI Respiratory: dyspnea on exertion, short of breath, other (respiratory failure) Cardiovascular: see HPI; No chest pain, No edema, No Hx of Intervention, No palpitations, No syncope, No vascular heart diseas, No other Gastrointestinal: no symptoms reported, see HPI Genitourinary: no symptoms reported, see HPI Musculoskeletal: no symptoms reported, see HPI Skin: see HPI Psychiatric/Neurological: See HPI All Other Systems Reviewed Negative Unless Noted: Yes (Negative excepted noted.) Reviewed Test Results Reviewed Test Results Lab Laboratory Tests Test 01/08/19 18:40 01/08/19 19:55 01/08/19 20:35 01/09/19 02:50 Range/Units Triglycerides Level 98 <150 MG/DL Blood Gas Puncture Site R BRACH LEFT RADIAL Blood Gas Patient Temperature 37.8 37.0 Arterial Blood pH 7.29 *L 7.46 H 7.37-7.43 Arterial Blood Partial Pressure CO2 84 *H 56 H 35-45 MMHG Arterial Blood Partial Pressure O2 231 H 157 H 79-93 MMHG Arterial Blood HCO3 39 H 40 H 23-27 MMOL/L Arterial Blood Total CO2 41.4 H 41.7 H 21.0-31.0 MMOL/L Arterial Blood Oxygen Saturation 100 99 94-100 % Arterial Blood Base Excess 12.3 H 15.1 H -2.5-2.5 MMOL/L Morteza Test NA YES-POS Blood Gas Ventilator Setting YES YES Blood Gas Inspired Oxygen 60% 30% Urine Color JODIE H Urine Clarity SL CLOUDY Urine pH 5 5-9 Urine Specific [place] 1.025 H 1.016-1.022 Urine Protein 3+ H NEGATIVE Urine Glucose (UA) 2+ H NEGATIVE Urine Ketones 1+ H NEGATIVE Urine Nitrite NEGATIVE NEGATIVE Urine Bilirubin NEGATIVE NEGATIVE Urine Urobilinogen 1 NORMAL MG/DL Urine Leukocyte Esterase 1+ H NEGATIVE Urine RBC (Auto) 5+ H NEGATIVE Urine RBC 25-50 H /HPF Urine WBC 5-10 H /HPF Urine Crystals PRESENT H /LPF Urine Amorphous Sediment MOD RIKKI URATES H /LPF Urine Bacteria MODERATE H /HPF Urine Casts PRESENT /LPF Urine Hyaline Casts 5-10 H /LPF Urine Coarse Granular Casts 10-25 H /LPF Urine Mucus NEGATIVE /LPF Urine Culture Indicated YES Urine Opiates Screen NEGATIVE NEGATIVE Urine Oxycodone Screen NEGATIVE NEGATIVE Urine Methadone Screen NEGATIVE NEGATIVE Urine Propoxyphene Screen NEGATIVE NEGATIVE Urine Barbiturates Screen NEGATIVE NEGATIVE Ur Tricyclic Antidepressants Screen NEGATIVE NEGATIVE Urine Phencyclidine Screen NEGATIVE NEGATIVE Urine Amphetamines Screen NEGATIVE NEGATIVE Urine Methamphetamines Screen NEGATIVE NEGATIVE Urine Benzodiazepines Screen NEGATIVE NEGATIVE Urine Cocaine Screen NEGATIVE NEGATIVE Urine Cannabinoids Screen NEGATIVE NEGATIVE Test 01/09/19 03:10 01/09/19 09:55 01/09/19 15:07 Range/Units White Blood Count 9.2 4.3-11.0 10^3/uL Red Blood Count 2.99 L 4.35-5.85 10^6/uL Hemoglobin 9.5 #L 13.3-17.7 G/DL Hematocrit 32 L 40-54 % Mean Corpuscular Volume 107 H 80-99 FL Mean Corpuscular Hemoglobin 32 25-34 PG Mean Corpuscular Hemoglobin Concent 30 L 32-36 G/DL Red Cell Distribution Width 12.3 10.0-14.5 % Platelet Count 213 130-400 10^3/uL Mean Platelet Volume 11.3 H 7.4-10.4 FL Neutrophils (%) (Auto) 82 H 42-75 % Lymphocytes (%) (Auto) 8 L 12-44 % Monocytes (%) (Auto) 10 0-12 % Eosinophils (%) (Auto) 0 0-10 % Basophils (%) (Auto) 0 0-10 % Neutrophils # (Auto) 7.6 1.8-7.8 X 10^3 Lymphocytes # (Auto) 0.7 L 1.0-4.0 X 10^3 Monocytes # (Auto) 0.9 0.0-1.0 X 10^3 Eosinophils # (Auto) 0.0 0.0-0.3 10^3/uL Basophils # (Auto) 0.0 0.0-0.1 10^3/uL Sodium Level 136 135-145 MMOL/L Potassium Level 4.4 3.6-5.0 MMOL/L Chloride Level 89 L 98-107 MMOL/L Carbon Dioxide Level 38 H 21-32 MMOL/L Anion Gap 9 5-14 MMOL/L Blood Urea Nitrogen 21 H 7-18 MG/DL Creatinine 1.29 0.60-1.30 MG/DL Estimat Glomerular Filtration Rate 58 BUN/Creatinine Ratio 16 Glucose Level 221 H 70-105 MG/DL Calcium Level 8.9 8.5-10.1 MG/DL Corrected Calcium 9.5 8.5-10.1 MG/DL Phosphorus Level < 0.7 *L 2.3-4.7 MG/DL Magnesium Level 1.6 1.6-2.4 MG/DL Total Bilirubin 0.3 0.1-1.0 MG/DL Aspartate Amino Transf (AST/SGOT) 17 5-34 U/L Alanine Aminotransferase (ALT/SGPT) 7 0-55 U/L Alkaline Phosphatase 79 40-136 U/L Total Protein 6.3 L 6.4-8.2 GM/DL Albumin 3.2 3.2-4.5 GM/DL Blood Gas Puncture Site LT RAD Blood Gas Patient Temperature 36.6 Arterial Blood pH 7.29 *L 7.37-7.43 Arterial Blood Partial Pressure CO2 82 *H 35-45 MMHG Arterial Blood Partial Pressure O2 93 79-93 MMHG Arterial Blood HCO3 39 H 23-27 MMOL/L Arterial Blood Total CO2 41.1 H 21.0-31.0 MMOL/L Arterial Blood Oxygen Saturation 97 94-100 % Arterial Blood Base Excess 11.6 H -2.5-2.5 MMOL/L Morteza Test YES-POS Blood Gas Ventilator Setting NO Blood Gas Inspired Oxygen 2 L Glucometer 132 H 70-110 MG/DL Physical Exam Physical Exam Vital Signs Vital Signs - First Documented 01/08/19 01/08/19 01/08/19 11:30 17:50 18:00 Temp 37.3 Pulse 118 Resp 18 B/P (MAP) 111/99 (103) Pulse Ox 100 O2 Delivery Room Air O2 Flow Rate 80.00 FiO2 100 Capillary Refill : Less Than 3 Seconds Height, Weight, BMI Height: '" Weight: 133lbs. 6.0oz. 60.159343xw; 20.00 BMI Method: General Appearance: WD/WN, Severe Distress Eyes: Bilateral Eye Normal Inspection, Bilateral Eye PERRL, Bilateral Eye EOMI HEENT: PERRL/EOMI, TMs Normal, Normal ENT Inspection, Pharynx Normal, Moist Mucous Membranes Neck: Full Range of Motion, Normal Inspection, Non Tender, Supple Respiratory: Accessory Muscle Use, Respiratory Distress, Rhonci Cardiovascular: No Edema, No Gallop, No JVD, Systolic Murmur, Irregularly Irregular, Tachycardia Gastrointestinal: Normal Bowel Sounds, No Organomegaly, No Pulsatile Mass, Non Tender, Soft Back: Normal Inspection, No CVA Tenderness, No Vertebral Tenderness Extremity: Normal Capillary Refill, Normal Inspection, Normal Range of Motion, Non Tender, No Calf Tenderness, No Pedal Edema Neurologic/Psychiatric: Alert, Oriented x3, No Motor/Sensory Deficits, Normal Mood/Affect Skin: Normal Color, Warm/Dry Lymphatic: No Adenopathy A/P-Cardiology Admission Diagnosis Atrial fibrillation with rapid ventricular response Acute respiratory failure Acute exacerbation of COPD Anemia Assessment/Plan Acute respiratory failure, acute exacerbation of COPD, self extubated and refusing intubation. Currently in respiratory failure managed by Dr. Simeon Atrial fibrillation, new onset, rapid ventricular response, I started him on Cardizem drip will continue monitoring and titrating to achieve adequate heart rate and blood pressure control, increase Lovenox to therapeutic doses to reduce the risk of stroke Hypotension, responded to IV fluids, continue to monitor blood pressure Coronary artery disease, had MultiLink stent done in 1998, 2 stents in 2012, no recent workup, has been following with a supply officer in [facility]. I will try to obtain copy of the workup Anemia, monitor H&H while receiving Lovenox. Continue on PPI Clinical Quality Measures DVT/VTE Risk/Contraindication: Risk Factor Score Per Nursin RFS Level Per Nursing on Admit: 2=Moderate ARNOLDO,BASHAR J MD Jan 09, 2019 16:15
[2019-01-09] MEDS: ENOXAPARIN 60 MG/0.6 ML (LOVENOX) SYR SC SCH (18:12)
[2019-01-09] MEDS ORDERED: DIGOXIN 0.25 MG/ML (LANOXIN) 2 ML AMP IV NR (18:15)
[2019-01-09] MEDS ORDERED: DEXMEDETOMIDINE INJECTION 1,000 MCG in NS (IVPB) 240 ML IV SCH (19:15)
--- NOTE | 2019-01-09 19:20 | NUR ---
This RN in room, pt's o2 sats 70%, pt adamant about not wearing bipap, vapotherm titrated, see interventions. Pt educated about disease process and oxygenation, pt continues to refuse bipap at this time, states he is comfortable and denies any other needs.
--- NOTE | 2019-01-09 19:44 | History & Physical-Hospitalist ---
ELIO MOFFETT [facility] [birth year]: History of Present Illness HPI/Chief Complaint CC: COPD Exacerbation HPI: Patient was extubated, but in respiratory distress. Patient was unable to give verbal responses so records were used to obtain HPI. The patient is using accessory muscles and anxious. Mr. Trent is a 58 yo WM who is presenting with COPD exacerbation and severe respiratory failure. For the past two weeks he has been reporting SOB and dyspnea with minimal exertion. With his SOB, his is unable to ambulate. Patient also was noted to have dry, non-productive cough. The patient is unable to answer questions in full sentences. He is reported to have been using accessory muscles and found in a tripod-like position. He has also been hallucinating because of his respiratory compromise. Exam Limitations: clinical condition, physical impairment Date Seen 01/09/19 Time Seen by a Provider: 19:15 Attending Physician Nishi Desir DO PCP Self,Jakub GILMORE Referring Physician Date of Admission Jan 08, 2019 at 15:07 Home Medications & Allergies Home Medications Reviewed patient Home Medication Reconciliation performed by pharmacy medication reconciliations psychiatric technician and/or nursing. Patients Allergies have been reviewed. Allergies Allergies Coded Allergies No Known Drug Allergies (Unverified01/08/19) Past Vebhixy-Htrmri-Hpsvrx Hx Past Med/Social Hx: Reviewed Nursing Past Med/Soc Hx Patient Social History Marrital Status: Alcohol Use: Denies Use Recreational Drug Use: No Smoking Status: Current Everyday Smoker Former Smoker, Quit: Dec 29, 2018 Type Used: Cigarettes 2nd Hand Smoke Exposure: Yes Recent Foreign Travel: No Contact w/other who traveled: No Recent Hopitalizations: No Recent Infectious Disease Expo: No Seasonal Allergies Seasonal Allergies: No Past Medical History Respiratory: COPD, Emphysema Family History Reviewed Nursing Family Hx Review of Systems ROS-Unable to Obtain: In respiratory distress and unable to answer due to severe SOB and dyspnea Physical Exam Physical Exam Vital Signs Vital Signs - First Documented 01/08/19 01/08/19 01/08/19 01/08/19 11:30 17:00 17:50 18:00 Temp 37.3 Pulse 118 Resp 18 B/P (MAP) 111/99 (103) Pulse Ox 100 O2 Delivery Room Air O2 Flow Rate 80.00 FiO2 100 Capillary Refill : Less Than 3 Seconds Height, Weight, BMI Height: '" Weight: 133lbs. 6.0oz. 60.106352pa; 20.00 BMI Method: General Appearance: Anxious, Chronically ill, Moderate Distress Eyes: Bilateral Eye Normal Inspection, Bilateral Eye PERRL, Bilateral Eye EOMI Respiratory: Accessory Muscle Use, Expiration, Respiratory Distress Cardiovascular: No Gallop, No JVD, No Murmur, Tachycardia Neurologic/Psychiatric: Alert Results Results/Procedures Labs Laboratory Tests 01/08/19 12:30 01/09/19 03:10 Patient resulted labs reviewed. Assessment/Plan Admission Diagnosis Severe Respiratory Failure Admission Status: Inpatient Order (span 2 midnights) Reason for Inpatient Admission: Severe SOB, Dyspnea, Respiratory Failure Assessment and Plan Assessment: 1. COPD exacerbation 2. Severe Respiratory Failure 3. Agitation and anxiety 4. History of HTN 5. History of HLP 6. History of CAD with stenting Plan: 1. Treat with breathing treatments and supplimental oxygen. 2. Give the patients meds to keep comfortable. 3. Treat BP, Cholesterol and monitor heart via telemetry Clinical Quality Measures DVT/VTE Risk/Contraindication: Risk Factor Score Per Nursin RFS Level Per Nursing on Admit: 2=Moderate NISHI DESIR DO 01/09/192034: History of Present Illness HPI/Chief Complaint Chief complaint: Respiratory failure due to hypercapnia. HPI: This is a 58yoWM who has a PMH of severe COPD with blebs who presents to the ICU at [facility] after presenting to the [place] ER with SOB and altered mental status. Pt was intubated because ABG showed sever respiratory acidosis with hypercapnia of CO2 greater than 119. Currently he is doing well, he is in the process of being weaned off the ventilator but due to the poor prognosis and severity of the COPD we do need to talk to him about the DNR status and overall chcf prognosis. 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 Currently he is intubated and unable to obtain any details from the Pt. Review of Systems Constitutional: see HPI Assessment/Plan Admission Diagnosis Admission Status: Inpatient Order (span 2 midnights) Reason for Inpatient Admission: VDRF Diagnosis/Problems Diagnosis/Problems (1) Acute and chronic respiratory failure with hypercapnia Status: Acute (2) Acute and chronic respiratory failure with hypoxia Status: Acute (3) COPD exacerbation Status: Acute Supervisory-Addendum Brief Verification & Attestation Participated in pt care: history, MDM, physical Personally performed: exam, history, MDM, supervision of care Care discussed with: Medical Student Procedures: n/a Results interpretation: Verified all documentation Verification and Attestation of Medical Student E/M Service A medical student performed and documented this service in my presence. I reviewed and verified all information documented by the medical student and made modifications to such information, when appropriate. I personally performed the physical exam and medical decision making. Nishi Desir, Jan 09, 2019,20:35 ELIO MOFFETT [facility] Jan 09, 2019 19:44 NISHI DESIR DO Jan 09, 2019 20:35
--- NOTE | 2019-01-09 20:30 | NUR ---
RECEIVED CALL FROM PT'S . PT'S PROVIDED PASSWORD. PT'S INQUIRED ABOUT CURRENT STATUS. THIS RN TOLD THAT THE PT IS DOING "OKAY AT THE TIME" AND THAT "VITALS ARE STABLE AND OXYGEN IS BEING MAINTAINED." THE DID NOT HAVE ANY MORE QUESTIONS. THIS RN OFFERED THE TO CALL BACK WITH ANY OTHER QUESTIONS. THANKFUL FOR UPDATE.
[2019-01-09] MEDS: cefTRIAXone 1,000 MG/SWFI 10 ML IV PUSH IV SCH ×2 (21:13)
[2019-01-09] MEDS: AZITHROMYCIN 500 MG/NS 250 ML IVPB IV SCH ×2 (21:13)
[2019-01-10] VITALS (29 sets, daily range): BP systolic 34–163; BP diastolic 66–102
[2019-01-10] MEDS: LACTATED RINGERS 1,000 ML IV SCH ×2 (01:16→01:45)
[2019-01-10] MEDS: RT-ALBUTEROL/IPRATROPIUM 3 ML (DUONEB) VIAL IH SCH ×5 (02:02→19:20)
[2019-01-10 04:28] LABS: BUN/CREATININE RATIO 22; CALCIUM 8.6 MG/DL (8.5-10.1); CARBON DIOXIDE 35 MMOL/L (21-32); CHLORIDE 95 MMOL/L (98-107); CREATININE SERUM 1.14 MG/DL (0.60-1.30); GFR ESTIMATED > 60; GLUCOSE 154 MG/DL (70-105); MAGNESIUM 2.1 MG/DL (1.6-2.4); PHOSPHORUS 6.1 MG/DL (2.3-4.7); POTASSIUM 5.1 MMOL/L (3.6-5.0); SODIUM 141 MMOL/L (135-145)
[2019-01-10 04:50] LABS: BASOPHILS % (AUTO) 0 % (0-10); EOSINOPHILS % (AUTO) 0 % (0-10); HEMATOCRIT 34 % (40-54); HEMOGLOBIN 9.9 G/DL (13.3-17.7); LYMPHOCYTES # (AUTO) 0.6 X 10^3 (1.0-4.0); LYMPHOCYTES % (AUTO) 4 % (12-44); MEAN CORPUSCULAR HEMOGLOBIN 32 PG (25-34); MEAN CORPUSCULAR HGB CONC 29 G/DL (32-36); MEAN CORPUSCULAR VOLUME 110 FL (80-99); MEAN PLATELET VOLUME 11.7 FL (7.4-10.4); MONOCYTES # (AUTO) 1.8 X 10^3 (0.0-1.0); MONOCYTES % (AUTO) 12 % (0-12); NEUTROPHILS # (AUTO) 12.6 X 10^3 (1.8-7.8); NEUTROPHILS % (AUTO) 84 % (42-75); PLATELET COUNT 223 10^3/uL (130-400); RED CELL DISTRIBUTION WIDTH 12.8 % (10.0-14.5)
[2019-01-10] MEDS: ENOXAPARIN 60 MG/0.6 ML (LOVENOX) SYR SC SCH ×2 (04:50→16:59)
[2019-01-10] MEDS: methylPREDNISolone 40 MG/ML (Solu-MEDROL) VIAL IV SCH ×4 (04:50→22:45)
--- NOTE | 2019-01-10 05:00 | NUR ---
THIS RN CALLED PT'S , RECEIVED PASSWORD, AND INFORMED HER THAT THE PT HAD STABLE VS THROUGHOUT THE NIGHT BUT HAD BEEN INCREASINGLY REQUIRING MORE OXYGEN TO MAINTAIN OXYGEN SATURATION. THIS RN INFORMED THAT THE PT HAD BECOME UNRESPONSIVE AND THAT SHE SHOULD COME BE WITH HIM. THIS RN ASKED IF HAD ANY QUESTIONS, SHE DENIED, AND SHE WAS OFFERED THE OPTION TO CALL THIS RN BACK IF ANY QUESTIONS WERE TO COME UP. PT'S THANKFUL FOR UPDATE.
--- NOTE | 2019-01-10 05:11 | Pulmonary Progress Note ---
Sepsis Event Evaluation Height, Weight, BMI Height: '" Weight: 133lbs. 6.0oz. 60.931780te; 20.00 BMI Method: Focused Exam Lactate Level 01/08/19 12:30: Lactic Acid Level 0.84 Exam Exam Vital Signs Date Time Temp Pulse Resp B/P (MAP) Pulse Ox O2 Delivery O2 Flow Rate FiO2 01/10/19 04:00 35.7 01/10/19 02:03 91 Vapotherm 38.00 50 01/10/19 01:38 128 18 84 Vapotherm 38.00 50.00 01/10/19 01:00 114 01/10/19 00:00 110 26 156/98 (117) 93 Vapotherm 38.00 45.00 01/10/19 00:00 Vapotherm 45 01/10/19 00:00 36.5 01/09/19 23:27 126 17 166/101 90 01/09/19 23:00 130 19 157/102 (120) 85 Vapotherm 38.00 45.00 01/09/19 22:00 36.1 01/09/19 22:00 129 19 152/99 (116) 85 Vapotherm 38.00 45.00 01/09/19 21:56 91 Vapotherm 38.00 40 01/09/19 21:00 138 180/105 (130) 64 Vapotherm 38.00 45.00 01/09/19 20:27 Vapotherm 38.00 45.00 01/09/19 20:13 Vapotherm 38.00 50.00 01/09/19 20:05 Vapotherm 38.00 60.00 01/09/19 20:00 124 35 188/113 (138) 79 Vapotherm 38.00 50.00 01/09/19 20:00 Vapotherm 45 01/09/19 19:45 Vapotherm 38.00 50.00 01/09/19 19:35 Vapotherm 40.00 70.00 01/09/19 19:30 Vapotherm 40.00 100.00 01/09/19 19:25 Vapotherm 40.00 70.00 01/09/19 19:20 Vapotherm 38.00 40.00 01/09/19 19:00 125 01/09/19 19:00 125 15 160/86 (110) 97 NIV Bilevel 45.00 01/09/19 18:31 NIV Bilevel 45.00 01/09/19 18:21 96 Vapotherm 38.00 40 01/09/19 18:00 144 137/91 (106) 87 NIV Bilevel 30.00 01/09/19 17:00 146 125/88 (100) 94 NIV Bilevel 30.00 01/09/19 16:00 NIV Bilevel 30 01/09/19 16:00 133 131/76 (94) 97 NIV Bilevel 30.00 01/09/19 15:24 96 Vapotherm 36.00 40 01/09/19 15:00 144 110/92 (98) 91 NIV Bilevel 30.00 01/09/19 14:00 142 112/82 (92) 91 NIV Bilevel 30.00 01/09/19 13:51 147 101/78 01/09/19 13:22 Vapotherm 30.00 30.00 01/09/19 13:00 118 01/09/19 13:00 118 16 133/90 (104) NIV Bilevel 30.00 01/09/19 12:00 113 13 148/90 (109) 100 NIV Bilevel 30.00 01/09/19 12:00 NIV Bilevel 30 01/09/19 11:42 NIV Bilevel 30.00 01/09/19 11:42 118 16 94 30.00 01/09/19 11:26 93 Vapotherm 30.00 30 01/09/19 11:00 98 12 140/88 (105) 94 Vapotherm 40.00 20.00 01/09/19 10:25 92 Vapotherm 40.00 28 01/09/19 10:00 101 24 132/88 (103) 90 Vapotherm 40.00 20.00 01/09/19 09:45 Vapotherm 40.00 20.00 01/09/19 09:00 85 10 103/78 (86) 88 Mechanical Ventilator 21.00 01/09/19 08:00 83 20 127/86 (100) 92 Mechanical Ventilator 21.00 01/09/19 07:53 36.6 01/09/19 07:47 Mechanical Ventilator 70 01/09/19 07:00 80 01/09/19 07:00 79 19 146/100 (115) 94 Mechanical Ventilator 21.00 01/09/19 06:45 92 19 138/95 (109) 94 Mechanical Ventilator 21.00 01/09/19 06:22 36.6 01/09/19 06:16 94 20 117/86 (96) 98 Mechanical Ventilator 21.00 01/09/19 06:08 76 20 100 30 01/09/19 06:00 89 19 127/96 (106) 99 Mechanical Ventilator 30.00 I & O 01/10/19 07:00 Intake Total 2635 ml Output Total 835 ml Balance 1800 ml Height & Weight Height: '" Weight: 133lbs. 6.0oz. 60.081728fe; 20.00 BMI Method: General Appearance: Anxious, Chronically ill, Moderate Distress HEENT: PERRL/EOMI, TMs Normal, Normal ENT Inspection, Pharynx Normal, Moist Mucous Membranes Neck: Full Range of Motion, Normal Inspection, Non Tender, Supple Respiratory: Accessory Muscle Use, Expiration, Respiratory Distress Cardiovascular: No Gallop, No JVD, No Murmur, Tachycardia Capillary Refill: Less Than 3 Seconds Extremity: Normal Capillary Refill, Normal Inspection, Normal Range of Motion, Non Tender, No Calf Tenderness, No Pedal Edema Neurologic/Psychiatric: Alert Skin: Normal Color, Warm/Dry Lymphatic: No Adenopathy Results Lab Laboratory Tests 01/08/19 12:30 01/09/19 03:10 01/10/19 03:46 Assessment/Plan Assessment/Plan Acute and chronic respiratory failure with hypercapnia -Pt self extubated yesterday. He is now DNR and refusing BiPAP Afib RVR -Cardizem gtt -Cardiology following Severe COPD/emphysema with COPDAE -Solumedrol 40 IV Q 6 -SVNs Q 4 Severe hypophos -replace Anemia -Monitor -Check occult stool GI/DVT PPX -Lovenox -Protonix HANG PAINTER DO Jan 10, 2019 05:11
[2019-01-10] MEDS ORDERED: FUROSEMIDE 40 MG/4 ML INJ (LASIX) IVP ONE (05:15)
[2019-01-10] MEDS: NS IV 1000 ML 1,000 ML IV SCH ×2 (05:51→20:23)
--- NOTE | 2019-01-10 06:45 | NUR ---
DR. PAINTER IN THE ROOM WITH PT'S AND FAMILY AT THIS TIME. DR. PAINTER INFORMED PT THAT THE PT'S COPD WILL NOT GET BETTER AND THAT THERE IS NO MEDICATION THAT CAN REVERSE THE COPD. YESTERDAY THE PT STATED HE DID NOT WANT TO BE ON THE MECHANICAL VENTILATOR AGAIN. DR. PAINTER GAVE THE THE OPTION TO PUT THE PT BACK ON BIPAP AND THAT'S WHAT THE DECIDED TO DO. AND FAMILY TEARFUL.
[2019-01-10] MEDS: KCL 20 MEQ TAB (K-DUR) PO SCH (07:16)
[2019-01-10] MEDS: MAGNESIUM 1 GM/100 ML IVPB 100 ML IV SCH (07:16)
[2019-01-10] MEDS: inSUlin ASPART (NovoLOG) 1 UNIT/0.01 ML (CHARGE PER UNIT) SC SCH ×4 (07:16→18:52)
[2019-01-10] MEDS: POTASSIUM CL 10MEQ/50ML IVPB 50 ML IV SCH (07:16)
--- NOTE | 2019-01-10 07:24 | Cardiology Progress Note ---
Subjective Date Seen by Provider: Jan 10, 2019 Time Seen by Provider: 07:22 Subjective/Events-last exam Patient is in bed, on BiPAP. Heart rate is better controlled Review of Systems General: Fatigue, Malaise Pulmonary: Dyspnea Cardiovascular: No: Chest Pain, Palpitations, Orthopnea, Paroxysmal Noc. Dyspnea, Edema, Lt Headedness, Other Focused Exam Lactate Level 01/08/19 12:30: Lactic Acid Level 0.84 Objective-Cardiology Exam Last Set of Vital Signs Vital Signs 01/10/19 01/10/19 04:00 07:00 Temp 35.7 Pulse 83 Resp 15 B/P (MAP) 158/89 (112) Pulse Ox 97 O2 Delivery NIV Bilevel O2 Flow Rate 60.00 FiO2 60 Capillary Refill : Less Than 3 Seconds I&O Intake and Output 01/10/19 00:00 Intake Total 2635 ml Output Total 1010 ml Balance 1625 ml Intake Oral 490 ml IV Total 2145 ml Output Urine Total 860 ml Gastric Drainage Total 150 ml General: Alert, Severe Distress HEENT: Atraumatic, PERRLA Neck: Supple, No JVD, No Thyromegaly Lungs: Normal Air Movement, Other (Bilateral wheezing and rhonchi) Heart: Regular Rate, Normal S1, Normal S2, No Murmurs Abdomen: Normal Bowel Sounds, Soft, No Tenderness, No Hepatosplenomegaly, No Masses Extremities: No Clubbing, No Cyanosis, No Edema, Normal Pulses, No Tenderness/Swelling Skin: No Rashes, No Breakdown, No Significant Lesion Neuro: Normal Gait, Normal Speech, Strength at 5/5 X4 Ext, Normal Tone, Sensation Intact Psych/Mental Status: Mental Status NL, Mood NL Results Lab Laboratory Tests 01/10/19 03:46 A/P-Cardiology Admission Diagnosis Atrial fibrillation with rapid ventricular response Acute respiratory failure Acute exacerbation of COPD Anemia Assessment/Plan Acute respiratory failure, acute exacerbation of COPD, self extubated and refusing intubation, on BiPAP, managed by Dr. Simeon next Paroxysmal atrial fibrillation, heart rate is back to normal, currently in sinus rhythm, I will stop the Cardizem drip and use IV Lopressor and evaluate tolerance and response Patient was started on Lovenox therapeutic dose to reduce the risk of stroke Hypotension, responded to IV fluids, continue to monitor blood pressure Coronary artery disease, had MultiLink stent done in 1998, 2 stents in 2013, no recent workup, has been following with a facilities locator in [facility]. I will try to obtain copy of the workup Anemia, monitor H&H while receiving Lovenox. Continue on PPI Clinical Quality Measures DVT/VTE Risk/Contraindication: Risk Factor Score Per Nursin RFS Level Per Nursing on Admit: 2=Moderate APOLINAR MCLAUGHLIN MD Jan 10, 2019 07:24
--- NOTE | 2019-01-10 08:48 | Diagnostic Imaging Report ---
INDICATION: Dyspnea. TECHNIQUE: Single view chest at 4:10 AM. CORRELATION STUDY: 01/09/2019. FINDINGS: Interval extubation and removal of the gastric tube. Right-sided central line has also been removed. Severe bullous emphysematous change about the lung trejo, particularly in the upper lobes and right greater than left. Scattered areas of pulmonary parenchymal density are present. There does appear to be slightly more increased density in the right lung base, suspect for superimposed infiltrate, atelectasis, or edema. IMPRESSION: 1. Interval extubation and removal of the remaining support lines and tubes. 2. Severe bullous emphysematous lung disease. There does appear to be slightly increasing potential infiltrate at the right lung base. Dictated by: Dictated on workstation # [id number]
--- NOTE | 2019-01-10 10:13 | Progress Note - Hospitalist ---
[facility] 01/10/19 1012: Subjective HPI/CC On Admission Date Seen by Provider: Jan 10, 2019 Time Seen by Provider: 07:00 Chief complaint: Respiratory failure due to hypercapnia. HPI: This is a 58yoWM who has a PMH of severe COPD with blebs who presents to the ICU at [facility] after presenting to the [place] ER with SOB and altered mental status. Pt was intubated because ABG showed sever respiratory acidosis with hypercapnia of CO2 greater than 119. Currently he is doing well, he is in the process of being weaned off the ventilator but due to the poor prognosis and severity of the COPD we do need to talk to him about the DNR status and overall buttermaker prognosis. 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 Currently he is intubated and unable to obtain any details from the Pt. Subjective/Events-last exam RR are fast at 27 breaths per minute and BP is elevated at 159/97. Patient was on BiPAP and not responsive. was present in the room. Patient still have a catheter in place. Review of Systems General: Other (unresponsive) Pulmonary: Dyspnea; No Cough, No Pleuritic Chest Pain, No Other Focused Exam Lactate Level 01/08/19 12:30: Lactic Acid Level 0.84 Objective Exam Vital Signs Vital Signs Date Time Temp Pulse Resp B/P (MAP) Pulse Ox O2 Delivery O2 Flow Rate FiO2 01/10/19 09:30 75 18 94 40.00 01/10/19 07:00 158/89 (112) NIV Bilevel 01/10/19 04:00 35.7 01/10/19 04:00 60 Capillary Refill : Less Than 3 Seconds General Appearance: Chronically ill, Severe Distress Respiratory: Accessory Muscle Use, Respiratory Distress Cardiovascular: Tachycardia Results/Procedures Lab Laboratory Tests 01/10/19 03:46 Patient resulted labs reviewed. Assessment/Plan Assessment and Plan Assess & Plan/Chief Complaint Assessment: 1. COPD exacerbation 2. Severe Respiratory Failure 3. Agitation and anxiety 4. History of HTN 5. History of HLP 6. History of CAD with stenting Plan: 1. Treat with breathing treatments and supplimental oxygen. 2. Give the patients meds to keep comfortable. 3. Treat BP, Cholesterol and monitor heart via telemetry Critical Care: Ventilator Management (BiPAP) Clinical Quality Measures DVT/VTE Risk/Contraindication: Risk Factor Score Per Nursin RFS Level Per Nursing on Admit: 2=Moderate NISHI DESIR DO 01/10/192038: Subjective Subjective/Events-last exam Palliative care consult initiated CT Scan shown to who does not want him to be DNR but the pt wants to be DNR Self extubated himself so they placed him back on BiPAP Such severe COPD with blebs encompassing most of the lung tissue Pt has a very poor prognosis Supervisory-Addendum Brief Verification & Attestation Participated in pt care: history, MDM, physical Personally performed: exam, history, MDM, supervision of care Care discussed with: Medical Student Procedures: n/a Results interpretation: Verified all documentation Verification and Attestation of Medical Student E/M Service A medical student performed and documented this service in my presence. I reviewed and verified all information documented by the medical student and made modifications to such information, when appropriate. I personally performed the physical exam and medical decision making. Nishi Desir, Jan 10, 2019,20:39 [facility] Jan 10, 2019 10:12 NISHI DESIR DO Jan 10, 2019 20:39
--- NOTE | 2019-01-10 10:30 | NUR ---
PALLIATIVE CARE RN to room to see patient. Family surrounding bed of patient, crying. He had an episode of respiratory failure and opted to place him back on BIPAP even though patient expressed he desire to not have this yesterday. Hope is to hove the CO2 come off so that he can wake again. Discussed COMFORT CARE and what this would entail. Not ready for this yet.
[2019-01-10] MEDS: meTOprolol 5 MG/5 ML (LOPRESSOR) VIAL IV SCH ×3 (10:37→17:16)
[2019-01-10] MEDS: PANTOPRAZOLE 40 MG (PROTONIX) VIAL IV SCH (10:37)
--- NOTE | 2019-01-10 13:21 | NUR ---
Palliative Care and Dr. Simeon rounded on patient again. He is still with BiPAP and is awake and able to talk with family as much as able with mask on. family have no questions at this time. Will continue to follow and offer support as needed.
--- NOTE | 2019-01-10 13:42 | NUR ---
Observed pt's daughter and daughter's friend in the hallway, both smiling and laughing. I then observed them to be tearful and approached them, at which time they shared they had "happy tears" because the pt was moving and making eye contact. The pt's son also joined our conversation.
[2019-01-10] MEDS ORDERED: DEXMEDETOMIDINE INJECTION 1,000 MCG in NS (IVPB) 240 ML IV SCH (16:45)
[2019-01-10] MEDS: morphine INJ 4 MG/ML 1 ML (VIAL/SYRINGE) IVP PRN ×2 (18:53→20:55)
[2019-01-10] MEDS: cefTRIAXone 1,000 MG/SWFI 10 ML IV PUSH IV SCH ×2 (21:04)
[2019-01-10] MEDS: AZITHROMYCIN 500 MG/NS 250 ML IVPB IV SCH ×2 (21:04)
--- NOTE | 2019-01-10 21:05 | NUR ---
1919--This RN in to see pt, lengthy discussion with family r/t plan of care for pt, all questions answered, family requesting to have more time for discussion 1999--This RN to room, offered support, answered questions, discussed plan of care 2044--Family came to this RN with decision to take bipap off pt palliatively, Dr Simeon notified 2049--This RN and RT Lovelace at bedside, discussed with family about plan to make pt comfortable, all family in agreement, medication administered, see eMAR 2056--Bipap removed, nasal cannula placed at 3L for comfort, pt without s/s distress, appears peaceful, family surrounding bedside, all questions answered, family denies needs at this time
[2019-01-11] MEDS: meTOprolol 5 MG/5 ML (LOPRESSOR) VIAL IV SCH (00:11)
[2019-01-11] MEDS: inSUlin ASPART (NovoLOG) 1 UNIT/0.01 ML (CHARGE PER UNIT) SC SCH (00:11)
[2019-01-11] MEDS: RT-ALBUTEROL/IPRATROPIUM 3 ML (DUONEB) VIAL IH SCH (03:17)
[2019-01-11 03:36] LABS: CALCIUM 7.9 MG/DL (8.5-10.1); CREATININE SERUM 2.04 MG/DL (0.60-1.30); MAGNESIUM 2.3 MG/DL (1.6-2.4); PHOSPHORUS 8.4 MG/DL (2.3-4.7)
[2019-01-11 03:52] LABS: POTASSIUM 7.2 MMOL/L (3.6-5.0)
--- NOTE | 2019-01-11 04:40 | Pulmonary Progress Note ---
Subjective Time Seen by a Provider: 04:39 Subjective/Events-last exam PT IS NOW COMFORT CARE ONLY. Sepsis Event Evaluation Height, Weight, BMI Height: '" Weight: 133lbs. 6.0oz. 60.748652tx; 20.00 BMI Method: Focused Exam Lactate Level 01/08/19 12:30: Lactic Acid Level 0.84 Exam Exam Vital Signs Date Time Temp Pulse Resp B/P (MAP) Pulse Ox O2 Delivery O2 Flow Rate FiO2 01/11/19 00:00 72 91 Nasal Cannula 3.00 01/10/19 22:00 75 Nasal Cannula 3.00 01/10/19 21:00 71 115/72 (86) Nasal Cannula 3.00 01/10/19 20:57 Nasal Cannula 3.00 01/10/19 20:00 79 18 115/69 (84) NIV Bilevel 60.00 01/10/19 19:00 79 20 123/74 (90) NIV Bilevel 60.00 01/10/19 19:00 79 01/10/19 18:00 78 22 159/100 (119) 96 NIV Bilevel 60.00 01/10/19 17:00 92 26 160/87 (111) 97 NIV Bilevel 60.00 01/10/19 16:06 85 19 94 50.00 01/10/19 16:00 82 21 140/82 (101) 93 NIV Bilevel 60.00 01/10/19 16:00 36.3 01/10/19 16:00 90 NIV Bilevel 38.00 50 01/10/19 15:00 92 21 150/86 (107) 97 NIV Bilevel 60.00 01/10/19 14:55 96 24 152/86 (108) 91 NIV Bilevel 60.00 01/10/19 14:18 113 32 94 50.00 01/10/19 13:36 86 29 94 40.00 01/10/19 13:00 95 01/10/19 13:00 84 24 146/83 (104) 96 NIV Bilevel 60.00 01/10/19 12:00 90 NIV Bilevel 38.00 50 01/10/19 12:00 82 26 150/97 (114) 96 NIV Bilevel 60.00 01/10/19 11:00 62 21 112/66 (81) 93 NIV Bilevel 60.00 01/10/19 10:42 76 21 91 40.00 9/25/19 10:00 77 21 129/73 (91) 87 NIV Bilevel 60.00 01/10/19 09:30 75 18 94 40.00 01/10/19 09:00 75 17 124/72 (89) 94 NIV Bilevel 60.00 01/10/19 08:00 81 17 130/70 (90) 93 NIV Bilevel 60.00 01/10/19 08:00 90 NIV Bilevel 38.00 50 01/10/19 07:53 80 16 94 50.00 01/10/19 07:00 83 15 158/89 (112) 97 NIV Bilevel 60.00 01/10/19 07:00 78 01/10/19 06:50 82 16 92 60.00 01/10/19 06:49 84 21 163/92 (115) 91 NIV Bilevel 60.00 01/10/19 06:02 89 25 84 Vapotherm 38.00 70.00 01/10/19 06:00 89 31 163/89 (113) 85 Vapotherm 38.00 60.00 01/10/19 05:00 90 27 159/97 (117) 90 Vapotherm 38.00 60.00 01/10/19 04:55 92 25 89 Vapotherm 38.00 60.00 I & O 01/11/19 07:00 Intake Total 1125 ml Output Total 825 ml Balance 300 ml Height & Weight Height: '" Weight: 133lbs. 6.0oz. 60.508399zo; 20.00 BMI Method: General Appearance: Chronically ill, Mild Distress HEENT: PERRL/EOMI, TMs Normal, Normal ENT Inspection, Pharynx Normal, Moist Mucous Membranes Neck: Full Range of Motion, Normal Inspection, Non Tender, Supple Respiratory: Accessory Muscle Use, Respiratory Distress Cardiovascular: Tachycardia Capillary Refill: Less Than 3 Seconds Extremity: Normal Capillary Refill, Normal Inspection, Normal Range of Motion, Non Tender, No Calf Tenderness, No Pedal Edema Neurologic/Psychiatric: Depressed Affect Skin: Normal Color, Warm/Dry Lymphatic: No Adenopathy Results Lab Laboratory Tests 01/10/19 03:46 01/11/19 03:05 Assessment/Plan Assessment/Plan Acute and chronic respiratory failure with hypercapnia Afib RVR Severe COPD/emphysema with COPDAE Severe hypophos Anemia GI/DVT PPX PT IS NOW COMFORT CARE ONLY PER FAMILY WISHES. i AM GOING TO SIGN OFF. PLEASE CALL WITH ANY QUESTIONS. PT IS COMFORTABLE WITH FAMILY AT BEDSIDE. ALL QUESTIONS ANSWERED. HANG PAINTER DO Jan 11, 2019 04:40
[2019-01-11] MEDS ORDERED: LORazepam INJ 2 MG/ML (ATIVAN) VIAL IV PRN (04:45)
[2019-01-11] MEDS: morphine INJ 4 MG/ML 1 ML (VIAL/SYRINGE) IVP PRN (08:35)
--- NOTE | 2019-01-11 10:30 | NUR ---
PALLIATIVE CARE RN to room to see patient who is now CCMO as of last evening. and other family at bedside. Preparing to transfer to 4th floor room 403. Will continue to offer support and assist as needed with family understanding of Comfort Care goals.
--- NOTE | 2019-01-11 11:46 | Progress Note - Hospitalist ---
[facility] 01/11/19 1146: Subjective HPI/CC On Admission Date Seen by Provider: Jan 11, 2019 Time Seen by Provider: 07:30 Chief complaint: Respiratory failure due to hypercapnia. HPI: This is a 58yoWM who has a PMH of severe COPD with blebs who presents to the ICU at [facility] after presenting to the [place] ER with SOB and altered mental status. Pt was intubated because ABG showed sever respiratory acidosis with hypercapnia of CO2 greater than 119. Currently he is doing well, he is in the process of being weaned off the ventilator but due to the poor prognosis and severity of the COPD we do need to talk to him about the DNR status and overall remote computer terminal operator prognosis. 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 Currently he is intubated and unable to obtain any details from the Pt. Subjective/Events-last exam Patients condition is deteriorating. Patient unresponsive. Family decided on comfort care. Ativan and Morphine are given PRN as need. Focused Exam Lactate Level 01/08/19 12:30: Lactic Acid Level 0.84 Objective Exam Vital Signs Vital Signs Date Time Temp Pulse Resp B/P (MAP) Pulse Ox O2 Delivery O2 Flow Rate FiO2 01/11/19 08:40 79 Nasal Cannula 3.00 01/11/19 00:00 72 01/10/19 21:00 115/72 (86) 01/10/19 20:00 18 01/10/19 16:00 36.3 01/10/19 16:00 50 Capillary Refill : Less Than 3 Seconds General Appearance: Chronically ill, Severe Distress, Thin Skin: Cyanosis Lymphatic: No Adenopathy Results/Procedures Lab Laboratory Tests 01/11/19 03:05 Patient resulted labs reviewed. Assessment/Plan Assessment and Plan Assess & Plan/Chief Complaint Assessment: 1. COPD exacerbation 2. Severe Respiratory Failure 3. Agitation and anxiety 4. History of HTN 5. History of HLP 6. History of CAD with stenting Plan: 1. Treat with breathing treatments and supplimental oxygen. 2. Give the patients meds to keep comfortable. 3. Treat BP, Cholesterol and monitor heart via telemetry Clinical Quality Measures DVT/VTE Risk/Contraindication: Risk Factor Score Per Nursin RFS Level Per Nursing on Admit: 2=Moderate NISHI DESIR DO 01/11/19 9929: Supervisory-Addendum Brief Verification & Attestation Participated in pt care: history, MDM, physical Personally performed: exam, history, MDM, supervision of care Care discussed with: Medical Student Procedures: n/a Results interpretation: Verified all documentation Verification and Attestation of Medical Student E/M Service A medical student performed and documented this service in my presence. I revie wed and verified all information documented by the medical student and made modifications to such information, when appropriate. I personally performed the physical exam and medical decision making. Nishi Desir, Jan 11, 2019,18:53 [facility] Jan 11, 2019 11:46 NISHI DESIR DO Jan 11, 2019 18:53
--- NOTE | 2019-01-11 14:08 | Discharge Summary ---
[facility] 01/11/19 1408: Discharge Summary Hospital Course Was the Problem List Reviewed?: Yes Problems/Dx: (1) Acute and chronic respiratory failure with hypercapnia Status: Acute (2) Acute and chronic respiratory failure with hypoxia Status: Acute (3) COPD exacerbation Status: Acute Hospital Course Date of Admission: Jan 08, 2019 at 15:07 Admission Diagnosis : Family Physician/Provider: Jakub Glover MD Date of Discharge: 01/11/19 Discharge Diagnosis: [ ] Hospital Course: [ ]Mr. Trent is a 58 yo WM that present with COPD exacerbation and severe respiratory failure. He was intubated, then extubated the next next day and started on BiPAP. He made no improvements, family decided to honor the DNR and waited for him to this afternoon. Labs and Pending Lab Test: Laboratory Tests 01/11/19 03:05: Sodium Level 142, Potassium Level 7.2#*H, Chloride Level 100, Carbon Dioxide Level 35H, Anion Gap 7, Blood Urea Nitrogen 41H, Creatinine 2.04H, Estimat Glomerular Filtration Rate 34, BUN/Creatinine Ratio 20, Glucose Level 136H, Calcium Level 7.9L, Phosphorus Level 8.4H, Magnesium Level 2.3 Microbiology 01/08/19 Blood Culture - Preliminary, Resulted No growth 01/08/19 MRSA Screen - Final, Complete MRSA not isolated 01/08/19 Urine Culture - Final, Complete NO GROWTH Home Meds Active Reported Vitamin B-12 (Cyanocobalamin (Vitamin B-12)) 500 Mcg Tablet 500 Mcg PO DAILY Aspirin EC (Aspirin) 81 Mg Tablet.dr 81 Mg PO BID Stiolto Respimat Inhal Points (Tiotropium Br/Olodaterol HCl) 4 Gm Mist.inhal 2 Puff INH DAILY Xopenex Hfa (Levalbuterol Tartrate) 15 Gm Hfa.aer.ad 2 Puff INH Q6H PRN Alprazolam 0.5 Mg Tablet 0.5 Mg PO HS Atorvastatin Calcium 10 Mg Tablet 10 Mg PO DAILY Metoprolol Succinate 50 Mg Tab.er.24h 50 Mg PO DAILY Lisinopril 5 Mg Tablet 5 Mg PO DAILY Iprat-Albut 0.5-3(2.5) mg/3 ml (Ipratropium/Albuterol Sulfate) 3 Ml Ampul.neb 3 Ml NEB QID Discharge Planning: <30 minutes discharge planning Discharge Physical Examination Vital Signs Vital Signs Date Time Temp Pulse Resp B/P (MAP) Pulse Ox O2 Delivery O2 Flow Rate FiO2 01/11/19 08:40 79 Nasal Cannula 3.00 01/11/19 00:00 72 01/10/19 21:00 115/72 (86) 01/10/19 20:00 18 01/10/19 16:00 36.3 01/10/19 16:00 50 Allergies: Coded Allergies: No Known Drug Allergies (Unverified , 01/08/19) Discharge Summary Date of Admission Jan 08, 2019 at 15:07 Date of Discharge Admission Diagnosis Severe Respiratory Failure Discharge Diagnosis Assessment: 1. COPD exacerbation 2. Severe Respiratory Failure 3. Agitation and anxiety 4. History of HTN 5. History of HLP 6. History of CAD with stenting Plan: 1. Treat with breathing treatments and supplimental oxygen. 2. Give the patients meds to keep comfortable. 3. Treat BP, Cholesterol and monitor heart via telemetry (1) Acute and chronic respiratory failure with hypercapnia Status: Acute (2) Acute and chronic respiratory failure with hypoxia Status: Acute (3) COPD exacerbation Status: Acute Clinical Quality Measures DVT/VTE Risk/Contraindication: Risk Factor Score Per Nursin RFS Level Per Nursing on Admit: 2=Moderate NISHI DESIR DO 01/11/19 1854: Discharge Summary Hospital Course Was the Problem List Reviewed?: Yes Assessment/Pt Instructions Discharge Planning: <30 minutes discharge planning Discharge Physical Examination General Appearance: Other () Allergies: Coded Allergies: No Known Drug Allergies (Unverified , 01/08/19) Supervisory-Addendum Brief Verification & Attestation Participated in pt care: history, MDM, physical Personally performed: exam, history, MDM, supervision of care Care discussed with: Medical Student Procedures: n/a Results interpretation: Verified all documentation Verification and Attestation of Medical Student E/M Service A medical student performed and documented this service in my presence. I reviewed and verified all information documented by the medical student and made modifications to such information, when appropriate. I personally performed the physical exam and medical decision making. Nishi Desir Jan 11, 2019,18:54 [facility] Jan 11, 2019 14:08 NISHI DESIR DO Jan 11, 2019 18:54
--- NOTE | 2019-01-11 14:27 | NUR ---
Respiratory Tech attended soon after and offered consolation and prayer. Family was grateful that patient was cognizant enough yesterday to recognize all visitors.
--- NOTE | 2019-01-11 14:47 | NUR ---
1330 Palliative Care RN in to room to check on patient. Family is at bedside and report he is not doing good. Assessment reveal "fish out of water respirations" and then he took his last breath. LEO Garcia verified TOD at 1337. Dr. Kent and Dr. Simeon notified at 1342 by this RN. This RN notified [facility] with Ref# of [id number]. Patient is a candidate for tissue and eyes. Instruction given on how to cool patient, however upon questioning, informed this RN that she would stay until the home got here. Notified [facility] again and they authorized release to where he will be placed in the cooler. Notified [facility] of request for body retrieval. They confirmed that [facility] had spoken to them and they were on the way.
--- NOTE | 2019-01-11 16:00 | NUR ---
[facility] IS HERE TO TALK TO THE FAMILY AND [employer] MILLING MACHINE OPERATOR THE BODY
== END 2019-01-11 16:00 | disposition expired | DRG 208 ==
LOC: EDUNIT# 11:27 → ER FS 11:29 → ICU 15:07 → 4TH 01-11 10:26
PROVIDERS: ADMIT Internal Medicine; ATTEND Internal Medicine
PROC: 5A1935Z Respiratory Ventilation, Less than 24 Consecutive Hours (ICD-10-PCS; principal; 2019-01-08)
PROC: 05HM33Z Insertion of Infusion Device into Right Internal Jugular Vein, Percutaneous Approach (ICD-10-PCS; 2019-01-08)
PROC: 0BH17EZ Insertion of Endotracheal Airway into Trachea, Via Natural or Artificial Opening (ICD-10-PCS; 2019-01-08)
DX: J96.22 Acute and chronic respiratory failure with hypercapnia (principal); J96.21 Acute and chronic respiratory failure with hypoxia; J43.9 Emphysema, unspecified; R44.0 Auditory hallucinations; I10 Essential (primary) hypertension; E78.5 Hyperlipidemia, unspecified; I25.10 Atherosclerotic heart disease of native coronary artery without angina pectoris; Z66 Do not resuscitate; Z51.5 Encounter for palliative care; R45.1 Restlessness and agitation; F41.9 Anxiety disorder, unspecified; I48.91 Unspecified atrial fibrillation; D64.9 Anemia, unspecified; I95.9 Hypotension, unspecified; E83.39 Other disorders of phosphorus metabolism; I87.2 Venous insufficiency (chronic) (peripheral); I07.1 Rheumatic tricuspid insufficiency; I25.2 Old myocardial infarction; Z95.5 Presence of coronary angioplasty implant and graft; Z87.891 Personal history of nicotine dependence
CPT/HCPCS: 36415; 36600; 51702; 70450; 71045; 80048; 80053; 80306; 80320; 80329; 81000; 82805; 82962; 83605; 83735; 83880; 84100; 84478; 84484; 85007; 85025; 85027; 85610; 85730; 87040; 87070; 87077; 87081; 87088; 87185; 87205; 93005; 93306; 94002; 94003; 94640; 94660; 94799; 96374; 96375